=== PATIENT | male | born 1975 | race Two or more races ===

== ENCOUNTER 2017-12-15 09:42 | Inpatient (IN) | payer MEDICAID ==
[2017-12-15] VITALS (13 sets, daily range): BP systolic 123–154; BP diastolic 54–100
[~2017-12-15] VITALS: Ht 180.3 cm; Wt 132.9 kg
[~2017-12-15 09:42] MED LIST: ATEN-60 PO; CHLO25CA2 PO; CITA-77 PO
[2017-12-15] MEDS ORDERED: MIDAZOLAM HCL 5 MG/ML-1ML VIAL ONE ×2 (09:54→10:00)
[2017-12-15] MEDS ORDERED: MIDAZOLAM DRIP 50 mg/50mL 50 ML IV ONE ×2 (09:55→15:41)
[2017-12-15] MEDS ORDERED: MIDAZOLAM HCL 5 MG/ML-1ML VIAL IV ONE (10:00)
[2017-12-15] MEDS ORDERED: SUCCINYLCHOLINE CHLORIDE 20 MG/ML 10ML VIAL IV ONE ×2 (10:00)
[2017-12-15 10:18] LABS: Urine Bacteria FEW /hpf (None Seen); Urine Blood Negative /uL (Negative); Urine Hyaline Cast MOD /lpf (0 - 2); Urine Mucus FEW (None Seen); Urine Specific Gravity 1.024 (1.001-1.035); Urine WBC 13 /hpf (0 - 3)
[2017-12-15 10:20] LABS: Basophils # (auto) 0.2 uL; Basophils % (auto) 0.8 % (0.0-2.0); Eosinophils # (auto) 0 uL; Eosinophils % (auto) 0.1 % (0.0-7.0); Hematocrit 47.2 % (41.0-53.0); Hemoglobin 16.1 g/dL (13.5-17.5); Lymphocytes % (auto) 14.6 % (10.0-50.0); Mean Corpuscular Hemoglobin 29.5 pg (28.0-32.0); Mean Corpuscular Hgb Conc. 34.1 g/dL (32.0-36.0); Mean Corpuscular Volume 86.5 fL (80.0-100.0); Monocytes # (auto) 0.6 uL; Neutrophils # (auto) 16.9 uL; Neutrophils % (auto) 81.5 % (37.0-80.0); Nucleated Red Blood Cells % 0.1 %; Platelet Count (auto) 278 10^3/uL (140-450); Red Blood Cells 5.46 10^6/uL (4.5-5.90); Red Cell Distribution Width 14.6 % (11.8-14.3); White Blood Cell 20.7 10^3/uL (4.4-10.8)
[2017-12-15] MEDS ORDERED: SODIUM CHLORIDE 0.9% 1,000 ML IVB ONE (10:22)
[2017-12-15 10:36] LABS: INR 1.01 (0.9-1.15); Partial Thromboplastin Time 24.7 sec (23.78-33.04); Prothrombin Time 10.8 sec (9.27-12.13)
[2017-12-15 10:41] LABS: Albumin 3.6 g/dL (3.4-5.0); Anion Gap 24 (5-15); Blood Alcohol < 3.0 mg/dL (0-5); Blood Urea Nitrogen 23 mg/dL (7-18); Calcium 7.2 mg/dL (8.5-10.1); Carbon Dioxide 20 mmol/L (21-32); Chloride 91 mmol/L (98-107); Magnesium 2.8 mg/dL (1.6-2.6); Potassium 4.1 mmol/L (3.5-5.1); Sodium 135 mmol/L (136-145)
[2017-12-15 10:44] LABS: Amphetamine Screen, Urine NEGATIVE (NEGATIVE); Barbiturate Scree,Urine NEGATIVE (NEGATIVE); Benzodiazephine Screen, Urine NEGATIVE (NEGATIVE); Cannabinoid Screen, Urine NEGATIVE (NEGATIVE); Cocaine Screen, Urine NEGATIVE (NEGATIVE); Opiate Scree,Urine NEGATIVE (NEGATIVE); Phencyclidine Screen, Urine NEGATIVE (NEGATIVE)
[2017-12-15 10:45] LABS: Alanine Aminotransferase 86 U/L (16-61); Alkaline Phosphatase 95 U/L (45-117); Aspartate Aminotransferase 57 U/L (15-37); BUN/Creatinine Ratio 6.5; Bilirubin, Total 0.4 mg/dL (0.2-1.0); GFR African American 25 mL/min; GFR Non-African American 20 mL/min
[2017-12-15 10:53] LABS: Glucose 429 mg/dL (74-106)
[2017-12-15 11:02] LABS: Lactic Acid w/Reflex 12.3 mmol/L (0.4-2.0)
[2017-12-15 11:23] LABS: Acetaminophen < 2.0 ug/mL (10-30); Salicylate < 1.7 mg/dL (2.8-20.0)
[2017-12-15] MEDS ORDERED: cefTRIAXone 1GM/10ml IVPUSH 10 ML IV ONE (12:30)
[2017-12-15] MEDS ORDERED: InsuLIN REG 1unit/0.01ml Soln (100units/ml) IV ONE ×2 (12:30→15:15)
[2017-12-15] MEDS ORDERED: MIDAZOLAM DRIP 50 mg/50mL 50 ML IV SCH (15:38)
[2017-12-15] MEDS ORDERED: PROPOFOL 100 ML IV SCH (16:31)
[2017-12-15] MEDS ORDERED: PROPOFOL 100 ML IV ONE ×2 (16:34→19:53)
[2017-12-15 16:36] LABS: Lactic Acid w/Reflex 10.7 mmol/L (0.4-2.0)
[2017-12-15] MEDS: MIDAZOLAM DRIP 50 mg/50mL 50 ML IV SCH ×2 (16:46→22:44)
[2017-12-15] MEDS: PROPOFOL 100 ML IV SCH ×3 (16:46→22:32)
[2017-12-15 16:53] LABS: Albumin 3.4 g/dL (3.4-5.0); BUN/Creatinine Ratio 7.5; Bilirubin, Total 0.3 mg/dL (0.2-1.0); Calcium 6.6 mg/dL (8.5-10.1); Potassium 4.4 mmol/L (3.5-5.1); Total Protein 6.5 g/dL (6.4-8.2)
[2017-12-15] MEDS ORDERED: LORazepam 2MG/ML-1ML VIAL IV PRN (17:00)
[2017-12-15] MEDS ORDERED: DEXTROSE (50%) 50ML SYRG IV PRN (17:00)
[2017-12-15] MEDS ORDERED: PIPERACILLIN-TAZOB 2.25GM 50 ML IV ONE (17:00)
[2017-12-15] MEDS: SODIUM CHLORIDE 0.9% 1,000 ML IV SCH (17:02)
[2017-12-15] MEDS ORDERED: MORPHINE SULF INJ 10 MG/ML 10ML MDV IV PRN ×2 (17:15)
[2017-12-15] MEDS ORDERED: PANTOPRAZOLE 40 MG/10 ML VIAL IV ONE (17:15)
[2017-12-15] MEDS ORDERED: NITROGLYCERIN 0.4 MG SL TAB SL PRN (17:15)
[2017-12-15] MEDS ORDERED: FAMOTIDINE (10MG/ML) 2ML VL IV ONE (17:15)
[2017-12-15] MEDS ORDERED: SODIUM CHLORIDE 0.9% 2,000 ML IV ONE (17:30)
[2017-12-15] MEDS ORDERED: CALCIUM CHL 100MG/ML 1,000 MG in D5W 5% 100 ML IV ONE (17:45)
[2017-12-15] MEDS: LINEZOLID 600MG/300ML 300 ML IV SCH (17:50)
[2017-12-15] MEDS: InsuLIN REG 1unit/0.01ml Soln (100units/ml) SC SCH (18:00)
[2017-12-15] MEDS: ACCU-CHEK COMFORT CURVE STRIP VI SCH (18:00)
[2017-12-15] MEDS: IPRATROPIUM BROM 0.5 MG/2.5ML INH SOL NEB SCH ×2 (18:48→22:18)
[2017-12-15] MEDS: ALBUTEROL SULF 2.5 MG/0.5ML(0.5%) NEB SOLN NEB SCH ×2 (18:48→22:18)
[2017-12-15 19:47] LABS: Lactic Acid w/Reflex 5.3 mmol/L (0.4-2.0)
[2017-12-15] MEDS: LORazepam 2MG/ML-1ML VIAL IV PRN (20:15)
[2017-12-15] MEDS ORDERED: DIGOXIN (250MCG/ML) 2 ML AMPULE ONE (21:27)
[2017-12-15] MEDS ORDERED: DIGOXIN (250MCG/ML) 2 ML AMPULE IV ONE (21:30)
[2017-12-15 22:38] LABS: BUN/Creatinine Ratio 6.9; Calcium 6.9 mg/dL (8.5-10.1); Potassium 4.5 mmol/L (3.5-5.1)
[2017-12-15] MEDS ORDERED: DILTIAZEM HCL 25 MG/5 ML VIAL IV ONE ×2 (22:48→23:00)
[2017-12-15] MEDS ORDERED: MORPHINE SULFATE 4 MG/ML SYR/VIAL ONE (23:59)
[2017-12-16] VITALS (92 sets, daily range): BP systolic 103–135; BP diastolic 49–82
[2017-12-16] MEDS: ACCU-CHEK COMFORT CURVE STRIP VI SCH ×4 (00:11→20:00)
[2017-12-16] MEDS: InsuLIN REG 1unit/0.01ml Soln (100units/ml) SC SCH ×4 (00:13→20:00)
[2017-12-16] MEDS: PIPERACILLIN-TAZOB 3.375GM 100 ML IV SCH ×4 (00:13→18:20)
[2017-12-16] MEDS: ALBUTEROL SULF 2.5 MG/0.5ML(0.5%) NEB SOLN NEB SCH ×4 (02:00→15:11)
[2017-12-16] MEDS: MIDAZOLAM DRIP 50 mg/50mL 50 ML IV SCH ×3 (02:16→19:00)
[2017-12-16 04:27] LABS: Basophils # (auto) 0 uL; Basophils % (auto) 0.1 % (0.0-2.0); Eosinophils # (auto) 0 uL; Hematocrit 40.8 % (41.0-53.0); Hemoglobin 14.3 g/dL (13.5-17.5); Lymphocytes # (auto) 2.5 uL; Lymphocytes % (auto) 17.1 % (10.0-50.0); Mean Corpuscular Hemoglobin 29.5 pg (28.0-32.0); Mean Corpuscular Hgb Conc. 35.1 g/dL (32.0-36.0); Monocytes # (auto) 0.7 uL; Monocytes % (auto) 5.1 % (0.0-12.0); Neutrophils # (auto) 11.3 uL; Neutrophils % (auto) 77.7 % (37.0-80.0); Platelet Count (auto) 168 10^3/uL (140-450); Red Blood Cells 4.85 10^6/uL (4.5-5.90); Red Cell Distribution Width 14.4 % (11.8-14.3); White Blood Cell 14.5 10^3/uL (4.4-10.8)
[2017-12-16 04:39] LABS: Potassium 4.1 mmol/L (3.5-5.1)
[2017-12-16 04:43] LABS: BUN/Creatinine Ratio 6.3; Calcium 6.5 mg/dL (8.5-10.1)
[2017-12-16 04:51] LABS: Bilirubin, Total 0.5 mg/dL (0.2-1.0)
[2017-12-16] MEDS: LINEZOLID 600MG/300ML 300 ML IV SCH (05:24)
[2017-12-16] MEDS: SODIUM CHLORIDE 0.9% 1,000 ML IV SCH ×2 (05:25→09:00)
[2017-12-16] MEDS: PROPOFOL 100 ML IV SCH ×4 (05:25→22:23)
[2017-12-16] MEDS: IPRATROPIUM BROM 0.5 MG/2.5ML INH SOL NEB SCH ×4 (06:28→18:55)
[2017-12-16] MEDS ORDERED: PANTOPRAZOLE 40 MG/10 ML VIAL IV SCH (10:00)
[2017-12-16] MEDS: FAMOTIDINE (10MG/ML) 2ML VL IV SCH (10:57)
[2017-12-16] MEDS ORDERED: InsuLIN R (HUMAN) 100 UNITS in SODIUM CHL 0.9% 99 ML IV SCH (12:14)
[2017-12-16] MEDS ORDERED: DEXTROSE (50%) 50ML SYRG IV PRN ×2 (12:15→13:30)
[2017-12-16] MEDS: METOPROLOL TARTRATE 25 MG TAB PO SCH ×2 (13:00→21:13)
[2017-12-16] MEDS ORDERED: ACCU-CHEK COMFORT CURVE STRIP VI SCH ×2 (13:30→14:00)
[2017-12-16] MEDS: THIAMINE IV SCH (13:47)
[2017-12-16] MEDS: FOLIC ACID IV SCH (13:47)
[2017-12-16] MEDS: [UNRECOGNIZED DRUG - OTHER] IV SCH (13:47)
[2017-12-16] MEDS: MULTIPLE VITAMIN IV SCH (13:47)
[2017-12-16] MEDS: D5W/SOD CHLO 0.9% 1,000 ML IV SCH ×2 (14:00→23:30)
[2017-12-16] MEDS ORDERED: Diabetisource AC 1 Liter GT SCH (17:30)
[2017-12-16] MEDS: LEVALBUTEROL HCL 1.25 MG/3 ML NEB NEB SCH (18:55)
[2017-12-17] VITALS (103 sets, daily range): BP systolic 113–167; BP diastolic 52–94
[2017-12-17] MEDS: LEVALBUTEROL HCL 1.25 MG/3 ML NEB NEB SCH ×5 (00:23→23:53)
[2017-12-17] MEDS: IPRATROPIUM BROM 0.5 MG/2.5ML INH SOL NEB SCH ×5 (00:23→23:53)
[2017-12-17] MEDS: PROPOFOL 100 ML IV SCH ×4 (00:54→21:33)
[2017-12-17 04:03] LABS: Basophils # (auto) 0 uL; Basophils % (auto) 0.3 % (0.0-2.0); Eosinophils # (auto) 0 uL; Hematocrit 36.4 % (41.0-53.0); Hemoglobin 12.4 g/dL (13.5-17.5); Lymphocytes # (auto) 1.5 uL; Lymphocytes % (auto) 22.9 % (10.0-50.0); Mean Corpuscular Hemoglobin 29.1 pg (28.0-32.0); Mean Corpuscular Hgb Conc. 34.1 g/dL (32.0-36.0); Mean Corpuscular Volume 85.2 fL (80.0-100.0); Monocytes # (auto) 0.2 uL; Monocytes % (auto) 3.3 % (0.0-12.0); Neutrophils # (auto) 4.9 uL; Neutrophils % (auto) 73.5 % (37.0-80.0); Nucleated Red Blood Cells % 0.1 %; Platelet Count (auto) 83 10^3/uL (140-450); Red Blood Cells 4.27 10^6/uL (4.5-5.90); Red Cell Distribution Width 14.8 % (11.8-14.3); White Blood Cell 6.7 10^3/uL (4.4-10.8)
[2017-12-17 04:21] LABS: BUN/Creatinine Ratio 3.7; Calcium 6.8 mg/dL (8.5-10.1); Potassium 3.4 mmol/L (3.5-5.1)
[2017-12-17] MEDS: InsuLIN REG 1unit/0.01ml Soln (100units/ml) SC SCH ×6 (05:00→19:41)
[2017-12-17] MEDS: ACCU-CHEK COMFORT CURVE STRIP VI SCH ×6 (05:00→19:41)
[2017-12-17] MEDS: PIPERACILLIN-TAZOB 3.375GM 100 ML IV SCH ×4 (05:30→18:25)
[2017-12-17] MEDS: D5W/ SOD CHL 0.9%/KCL 20MEQ 1,000 ML IV SCH ×2 (09:01→22:01)
[2017-12-17] MEDS: FAMOTIDINE (10MG/ML) 2ML VL IV SCH (09:24)
[2017-12-17] MEDS: METOPROLOL TARTRATE 25 MG TAB PO SCH ×2 (09:24→22:01)
[2017-12-17] MEDS ORDERED: VANCOMYCIN PER PHARMACY 0 MG IV SCH (12:00)
[2017-12-17] MEDS ORDERED: PIPERACILLIN-TAZOB 3.375GM 100 ML IV SCH (12:00)
[2017-12-17] MEDS: MULTIPLE VITAMIN IV SCH (14:53)
[2017-12-17] MEDS: THIAMINE IV SCH (14:53)
[2017-12-17] MEDS: [UNRECOGNIZED DRUG - OTHER] IV SCH (14:53)
[2017-12-17] MEDS: FOLIC ACID IV SCH (14:53)
[2017-12-17] MEDS: VANCOMYCIN 1GM/250ML 250 ML IV SCH (14:53)
[2017-12-17] MEDS: MIDAZOLAM DRIP 50 mg/50mL 50 ML IV SCH (22:01)
[2017-12-18] VITALS (84 sets, daily range): BP systolic 113–201; BP diastolic 62–127
[2017-12-18] MEDS: PIPERACILLIN-TAZOB 3.375GM 100 ML IV SCH ×5 (00:02→23:04)
[2017-12-18] MEDS: ACCU-CHEK COMFORT CURVE STRIP VI SCH ×6 (00:15→20:22)
[2017-12-18] MEDS: InsuLIN REG 1unit/0.01ml Soln (100units/ml) SC SCH ×7 (00:15→23:31)
[2017-12-18] MEDS: VANCOMYCIN 1GM/250ML 250 ML IV SCH ×2 (03:13→15:25)
[2017-12-18 03:45] LABS: Basophils # (auto) 0 uL; Basophils % (auto) 0.7 % (0.0-2.0); Eosinophils # (auto) 0 uL; Eosinophils % (auto) 0.4 % (0.0-7.0); Hematocrit 35.8 % (41.0-53.0); Hemoglobin 12.1 g/dL (13.5-17.5); Lymphocytes # (auto) 1.4 uL; Lymphocytes % (auto) 29.1 % (10.0-50.0); Mean Corpuscular Hgb Conc. 33.8 g/dL (32.0-36.0); Mean Corpuscular Volume 85.8 fL (80.0-100.0); Monocytes # (auto) 0.2 uL; Monocytes % (auto) 3.9 % (0.0-12.0); Neutrophils # (auto) 3.2 uL; Neutrophils % (auto) 65.9 % (37.0-80.0); Nucleated Red Blood Cells % 0.1 %; Platelet Count (auto) 76 10^3/uL (140-450); Red Blood Cells 4.18 10^6/uL (4.5-5.90); Red Cell Distribution Width 14.9 % (11.8-14.3); White Blood Cell 4.8 10^3/uL (4.4-10.8)
[2017-12-18 04:03] LABS: BUN/Creatinine Ratio 4.2; Calcium 7.4 mg/dL (8.5-10.1); Potassium 3.5 mmol/L (3.5-5.1)
[2017-12-18] MEDS: D5W/ SOD CHL 0.9%/KCL 20MEQ 1,000 ML IV SCH ×2 (04:47→15:25)
[2017-12-18] MEDS: IPRATROPIUM BROM 0.5 MG/2.5ML INH SOL NEB SCH ×3 (06:22→18:55)
[2017-12-18] MEDS: LEVALBUTEROL HCL 1.25 MG/3 ML NEB NEB SCH ×3 (06:23→18:55)
[2017-12-18] MEDS: PROPOFOL 100 ML IV SCH (08:05)
[2017-12-18] MEDS ORDERED: POTASSIUM CHL 10% (20 MEQ/15ML) 15ml ORAL SOLN GT ONE (08:30)
[2017-12-18] MEDS: FAMOTIDINE (10MG/ML) 2ML VL IV SCH (09:53)
[2017-12-18] MEDS: METOPROLOL TARTRATE 25 MG TAB PO SCH ×2 (09:55→21:29)
[2017-12-18] MEDS: LORazepam 2MG/ML-1ML VIAL IV PRN ×2 (13:08→17:55)
[2017-12-18] MEDS: [UNRECOGNIZED DRUG - OTHER] IV SCH (13:09)
[2017-12-18] MEDS: FOLIC ACID IV SCH (13:09)
[2017-12-18] MEDS: MULTIPLE VITAMIN IV SCH (13:09)
[2017-12-18] MEDS: THIAMINE IV SCH (13:09)
[2017-12-19] VITALS (7 sets, daily range): BP systolic 123–156; BP diastolic 36–99
[2017-12-19] MEDS: ACCU-CHEK COMFORT CURVE STRIP VI SCH ×6 (00:26→20:00)
[2017-12-19] MEDS: LEVALBUTEROL HCL 1.25 MG/3 ML NEB NEB SCH ×4 (00:26→18:54)
[2017-12-19] MEDS: IPRATROPIUM BROM 0.5 MG/2.5ML INH SOL NEB SCH ×4 (00:27→18:54)
[2017-12-19 02:02] LABS: Basophils # (auto) 0 uL; Eosinophils # (auto) 0.1 uL; Hemoglobin 12.1 g/dL (13.5-17.5); Lymphocytes # (auto) 1.1 uL; Neutrophils # (auto) 3.7 uL; White Blood Cell 5.1 10^3/uL (4.4-10.8)
[2017-12-19 02:03] LABS: Basophils % (auto) 0.6 % (0.0-2.0); Eosinophils % (auto) 1.8 % (0.0-7.0); Hematocrit 35.7 % (41.0-53.0); Lymphocytes % (auto) 21.9 % (10.0-50.0); Mean Corpuscular Hemoglobin 28.8 pg (28.0-32.0); Mean Corpuscular Hgb Conc. 33.8 g/dL (32.0-36.0); Mean Corpuscular Volume 85.1 fL (80.0-100.0); Monocytes # (auto) 0.1 uL; Monocytes % (auto) 2.9 % (0.0-12.0); Neutrophils % (auto) 72.8 % (37.0-80.0); Platelet Count (auto) 66 10^3/uL (140-450); Red Blood Cells 4.19 10^6/uL (4.5-5.90); Red Cell Distribution Width 14.8 % (11.8-14.3)
[2017-12-19 02:26] LABS: BUN/Creatinine Ratio 7.1; Calcium 8.2 mg/dL (8.5-10.1); Potassium 3.8 mmol/L (3.5-5.1)
[2017-12-19] MEDS: VANCOMYCIN 1GM/250ML 250 ML IV SCH ×3 (02:59→18:46)
[2017-12-19] MEDS: InsuLIN REG 1unit/0.01ml Soln (100units/ml) SC SCH ×5 (04:11→22:37)
[2017-12-19] MEDS: D5W/ SOD CHL 0.9%/KCL 20MEQ 1,000 ML IV SCH ×2 (04:18→12:22)
[2017-12-19] MEDS: PIPERACILLIN-TAZOB 3.375GM 100 ML IV SCH ×3 (05:07→17:55)
[2017-12-19] MEDS: FAMOTIDINE (10MG/ML) 2ML VL IV SCH (09:29)
[2017-12-19] MEDS: MORPHINE SULF INJ 2 MG/ML SYRINGE 1ML IV PRN ×2 (09:30→15:57)
[2017-12-19] MEDS: ONDANSETRON HCL 4 MG/2 ML VIAL IV PRN ×2 (09:35→16:47)
[2017-12-19] MEDS: METOPROLOL TARTRATE 25 MG TAB PO SCH ×2 (10:00→22:00)
[2017-12-19] MEDS: [UNRECOGNIZED DRUG - OTHER] IV SCH (12:22)
[2017-12-19] MEDS: THIAMINE IV SCH (12:22)
[2017-12-19] MEDS: FOLIC ACID IV SCH (12:22)
[2017-12-19] MEDS: MULTIPLE VITAMIN IV SCH (12:22)
[2017-12-20] MEDS: LEVALBUTEROL HCL 1.25 MG/3 ML NEB NEB SCH ×4 (00:27→19:27)
[2017-12-20] MEDS: IPRATROPIUM BROM 0.5 MG/2.5ML INH SOL NEB SCH ×4 (00:27→19:27)
[2017-12-20] MEDS ORDERED: diphenhdrAMINE HCL 25 MG CAP PO ONE (00:45)
[2017-12-20] MEDS: PIPERACILLIN-TAZOB 3.375GM 100 ML IV SCH ×3 (00:55→13:27)
[2017-12-20] MEDS: InsuLIN REG 1unit/0.01ml Soln (100units/ml) SC SCH ×6 (02:00→20:56)
[2017-12-20] MEDS: ACCU-CHEK COMFORT CURVE STRIP VI SCH ×5 (02:00→17:11)
[2017-12-20] MEDS: VANCOMYCIN 1GM/250ML 250 ML IV SCH (03:00)
[2017-12-20 03:03] LABS: Basophils # (auto) 0 uL; Basophils % (auto) 0.7 % (0.0-2.0); Eosinophils # (auto) 0.3 uL; Eosinophils % (auto) 4.5 % (0.0-7.0); Hematocrit 36.6 % (41.0-53.0); Hemoglobin 12.5 g/dL (13.5-17.5); Lymphocytes # (auto) 1.1 uL; Lymphocytes % (auto) 18.6 % (10.0-50.0); Mean Corpuscular Hemoglobin 29.5 pg (28.0-32.0); Mean Corpuscular Hgb Conc. 34.2 g/dL (32.0-36.0); Mean Corpuscular Volume 86.3 fL (80.0-100.0); Monocytes # (auto) 0.3 uL; Monocytes % (auto) 4.3 % (0.0-12.0); Neutrophils # (auto) 4.2 uL; Neutrophils % (auto) 71.9 % (37.0-80.0); Platelet Count (auto) 75 10^3/uL (140-450); Red Blood Cells 4.24 10^6/uL (4.5-5.90); Red Cell Distribution Width 14.4 % (11.8-14.3); White Blood Cell 5.9 10^3/uL (4.4-10.8)
[2017-12-20 04:00] VITALS: BP 147/69
[2017-12-20 05:43] LABS: BUN/Creatinine Ratio 9.7; Calcium 8.3 mg/dL (8.5-10.1); Potassium 3.5 mmol/L (3.5-5.1)
[2017-12-20 06:00] VITALS: BP 150/71
[2017-12-20] MEDS: D5W/ SOD CHL 0.9%/KCL 20MEQ 1,000 ML IV SCH ×2 (06:30→16:30)
[2017-12-20 08:00] VITALS: BP 151/90
[2017-12-20] MEDS: FAMOTIDINE (10MG/ML) 2ML VL IV SCH (09:30)
[2017-12-20] MEDS: METOPROLOL TARTRATE 25 MG TAB PO SCH ×2 (09:30→22:24)
[2017-12-20 12:30] VITALS: BP 149/93
[2017-12-20] MEDS: MULTIPLE VITAMIN IV SCH (15:45)
[2017-12-20] MEDS: FOLIC ACID IV SCH (15:45)
[2017-12-20] MEDS: THIAMINE IV SCH (15:45)
[2017-12-20] MEDS: [UNRECOGNIZED DRUG - OTHER] IV SCH (15:45)
[2017-12-20 16:00] VITALS: BP 129/88
[2017-12-20] MEDS ORDERED: PIPERACILLIN-TAZOB 3.375GM 100 ML IV SCH (21:00)
[2017-12-20 21:01] VITALS: BP 152/74
[2017-12-21] MEDS: IPRATROPIUM BROM 0.5 MG/2.5ML INH SOL NEB SCH ×4 (01:19→18:40)
[2017-12-21] MEDS: LEVALBUTEROL HCL 1.25 MG/3 ML NEB NEB SCH ×4 (01:19→18:40)
[2017-12-21] MEDS: InsuLIN REG 1unit/0.01ml Soln (100units/ml) SC SCH ×5 (04:00→16:00)
[2017-12-21 05:15] VITALS: BP 128/95
[2017-12-21 06:17] LABS: Basophils # (auto) 0 uL; Basophils % (auto) 0.3 % (0.0-2.0); Eosinophils # (auto) 0.3 uL; Hematocrit 34.8 % (41.0-53.0); Hemoglobin 12.1 g/dL (13.5-17.5); Lymphocytes # (auto) 1.1 uL; Lymphocytes % (auto) 16.2 % (10.0-50.0); Mean Corpuscular Hemoglobin 29.8 pg (28.0-32.0); Mean Corpuscular Hgb Conc. 34.9 g/dL (32.0-36.0); Mean Corpuscular Volume 85.3 fL (80.0-100.0); Monocytes # (auto) 0.5 uL; Monocytes % (auto) 7.2 % (0.0-12.0); Neutrophils % (auto) 72.3 % (37.0-80.0); Platelet Count (auto) 95 10^3/uL (140-450); Red Blood Cells 4.07 10^6/uL (4.5-5.90); Red Cell Distribution Width 14.7 % (11.8-14.3); White Blood Cell 6.9 10^3/uL (4.4-10.8)
[2017-12-21 06:34] LABS: Potassium 3.7 mmol/L (3.5-5.1)
[2017-12-21 06:42] LABS: BUN/Creatinine Ratio 14.9; Calcium 8.6 mg/dL (8.5-10.1)
[2017-12-21 09:00] VITALS: BP 123/53
[2017-12-21] MEDS: METOPROLOL TARTRATE 25 MG TAB PO SCH (10:10)
[2017-12-21 12:50] VITALS: BP 133/79
[2017-12-21 16:57] VITALS: BP 142/65
[2017-12-21 18:48] VITALS: BP 133/79
== END 2017-12-21 19:31 | disposition home or self-care (01) | DRG 720 ==
LOC: EDBD 09:42 → ER 09:47 → OVERFLOW 09:48 → ICU WEST 22:04 → DOU IN ICU 12-18 18:17 → TELE-WESTW 12-20 06:34
PROVIDERS: ADMIT Internal Medicine; ATTEND Internal Medicine Pulmonary Disease
PROC: 5A1945Z Respiratory Ventilation, 24-96 Consecutive Hours (ICD-10-PCS; principal; 2017-12-16)
PROC: 0BH17EZ Insertion of Endotracheal Airway into Trachea, Via Natural or Artificial Opening (ICD-10-PCS; 2017-12-16)
DX: A41.9 Sepsis, unspecified organism (principal); N17.0 Acute kidney failure with tubular necrosis; J96.00 Acute respiratory failure, unspecified whether with hypoxia or hypercapnia; J69.0 Pneumonitis due to inhalation of food and vomit; G92 Toxic encephalopathy; N18.4 Chronic kidney disease, stage 4 (severe); D69.59 Other secondary thrombocytopenia; N39.0 Urinary tract infection, site not specified; E11.21 Type 2 diabetes mellitus with diabetic nephropathy; E87.1 Hypo-osmolality and hyponatremia; E83.51 Hypocalcemia; E44.1 Mild protein-calorie malnutrition; E11.22 Type 2 diabetes mellitus with diabetic chronic kidney disease; E11.65 Type 2 diabetes mellitus with hyperglycemia; E66.01 Morbid (severe) obesity due to excess calories; E83.41 Hypermagnesemia; E86.0 Dehydration; F17.210 Nicotine dependence, cigarettes, uncomplicated; F32.9 Major depressive disorder, single episode, unspecified; B95.1 Streptococcus, group B, as the cause of diseases classified elsewhere; X58.XXXA Exposure to other specified factors, initial encounter; R94.5 Abnormal results of liver function studies; I13.10 Hypertensive heart and chronic kidney disease without heart failure, with stage 1 through stage 4 chronic kidney disease, or unspecified chronic kidney disease; S01.21XA Laceration without foreign body of nose, initial encounter; S01.512A Laceration without foreign body of oral cavity, initial encounter; S01.511A Laceration without foreign body of lip, initial encounter; W18.39XA Other fall on same level, initial encounter; I65.23 Occlusion and stenosis of bilateral carotid arteries; F10.10 Alcohol abuse, uncomplicated; R56.9 Unspecified convulsions; J45.909 Unspecified asthma, uncomplicated; Z80.6 Family history of leukemia; Z68.41 Body mass index [BMI] 40.0-44.9, adult; Z83.3 Family history of diabetes mellitus; Z79.899 Other long term (current) drug therapy; Z85.72 Personal history of non-Hodgkin lymphomas; Y93.89 Activity, other specified; Y92.89 Other specified places as the place of occurrence of the external cause; Y99.8 Other external cause status
CPT/HCPCS: 36415; 36600; 51702; 70450; 70486; 71045; 72125; 74176; 80048; 80053; 80202; 80307; 80320; 80329; 81001; 82010; 82805; 82962; 83036; 83605; 83690; 83735; 83880; 84443; 84484; 85025; 85610; 85730; 87040; 87070; 87081; 87205; 87493; 92610; 92950; 93005; 93306; 93886; 94002; 94003; 94640; 95819; 96374; 96375; 97116; 97163; 97530; 99291; J0330; J1642; J1815; J2250; J2405; J2543; J2704; J3490; J7060

== ENCOUNTER 2022-02-17 09:30 | Emergency (ER) | payer MEDICAID ==
[~2022-02-17] VITALS: Ht 180.3 cm; Wt 107.0 kg
[2022-02-17] MEDS ORDERED: ETOMIDATE (2MG/ML) 20ML VIAL IV ONE (10:00)
[2022-02-17] MEDS ORDERED: MIDAZOLAM HCL 2MG/2ML 2ml VIAL (1mg/ml) IV ONE (10:00)
[2022-02-17 10:22] VITALS: BP 139/85
[2022-02-17] MEDS ORDERED: IBU600T PO (10:30)
== END 2022-02-17 11:05 | disposition home or self-care (01) ==
LOC: ER 09:30
DX: S52.121A Displaced fracture of head of right radius, initial encounter for closed fracture (principal); S53.104A Unspecified dislocation of right ulnohumeral joint, initial encounter; I10 Essential (primary) hypertension; J45.909 Unspecified asthma, uncomplicated; F17.210 Nicotine dependence, cigarettes, uncomplicated; Z79.899 Other long term (current) drug therapy; Z79.1 Long term (current) use of non-steroidal anti-inflammatories (NSAID); W18.39XA Other fall on same level, initial encounter; Y93.89 Activity, other specified; Y92.89 Other specified places as the place of occurrence of the external cause; Y99.8 Other external cause status
CPT/HCPCS: 24600; 73070; 99284; J2250